=== PATIENT | female | born 1950 | race Caucasian/White ===

== ENCOUNTER 2022-11-19 08:20 | Day surgery (SDC) | payer MEDICARE, SELFPAY ==
[2022-11-13 09:42] VITALS: BMI 30.2
[2022-11-19 10:26] VITALS: BP 152/74; PULSE 59; RESP 18; TEMP 36.1; O2SAT 98
[2022-11-19 10:42] LABS: POC Glucose,Bedside 119 (70-110)
[2022-11-19 11:53] VITALS: BP 144/66; PULSE 64; RESP 16; O2SAT 98
[2022-11-19 11:58] VITALS: BP 133/61; PULSE 57; RESP 16; O2SAT 100
[2022-11-19 12:03] VITALS: BP 132/63; PULSE 57; RESP 16; O2SAT 100
[2022-11-19 12:07] VITALS: BP 144/72; PULSE 59; RESP 16; TEMP 36.1; O2SAT 98
[2022-11-19 12:17] VITALS: BP 144/72; PULSE 59; RESP 16; TEMP 36.1; O2SAT 98
== END 2022-11-19 12:17 | disposition home or self-care (01) ==
PROVIDERS: PCP Family Medicine; Visit Provider Ophthalmology
DX: E11.36 Type 2 diabetes mellitus with diabetic cataract (principal); H25.9 Unspecified age-related cataract
CPT/HCPCS: 66984; 82962; V2632

== ENCOUNTER 2022-12-10 08:46 | Day surgery (SDC) | payer MEDICARE, SELFPAY ==
[2022-12-09 11:14] VITALS: BMI 29.8
[2022-12-10] VITALS (8 sets, daily range): BP systolic 121–160; BP diastolic 60–99; PULSE 59–66; RESP 16–19; TEMP 36.1–36.9; O2SAT 98–100
[2022-12-10 10:44] LABS: POC Glucose,Bedside 140 (70-110)
== END 2022-12-10 12:30 | disposition home or self-care (01) ==
PROVIDERS: PCP Family Medicine; Visit Provider Ophthalmology
DX: E11.36 Type 2 diabetes mellitus with diabetic cataract (principal); H25.9 Unspecified age-related cataract
CPT/HCPCS: 66984; 82962; V2632

== ENCOUNTER 2024-04-20 15:35 | Outpatient (CLI) | payer MEDICARE, SELFPAY ==
[2024-04-20 17:25] LABS: Basophils % 0.5 % (0.1-2.0); Eosinophils # 0.2 K/mm3 (0.0-0.4); Eosinophils % 1.8 % (0.1-12.0); Hematocrit 41.4 % (37.0-47.0); Lymphocytes # 2.5 K/mm3 (0.7-4.5); Lymphocytes % 28.4 % (10-50); Mean Corpuscular HGB Conc 31.4 g/dL (31.8-35.4); Mean Corpuscular Volume 85.9 fl (81-99); Mean Platelet Volume 10.1 fl (7.4-10.4); Monocytes # 0.7 K/mm3 (0.1-1.0); Monocytes % 8.1 % (1.7-9.3); Neutrophils # 5.3 K/mm3 (1.8-7.8); Neutrophils % 60.9 % (37.0-80.0); Platelet Count 390 K/mm3 (142-424); Red Blood Count 4.82 M/mm3 (4.20-5.40); White Blood Count 8.7 K/mm3 (4.8-10.8)
[2024-04-20 17:44] LABS: Alanine Aminotransferase 23 U/L (12-78); Albumin Level 4.6 g/dl (3.5-5.0); Albumin/Globulin Ratio 1.8 (1.1-1.8); Alkaline Phosphatase 110 U/L (38-126); Anion Gap 16.2 mEq/L (5-15); Aspartate Amino Transferase 35 U/L (14-36); Bilirubin,Total 0.8 mg/dl (0.2-1.3); Blood Urea Nitrogen 22 mg/dl (7-17); Calcium 10.5 mg/dl (8.4-10.2); Carbon Dioxide 27 mmol/L (22.0-30.0); Chloride 100 mmol/L (98-107); Cholesterol 182 mg/dl (140-200); Estimated Glomerular Filt Rate 70 ml/min (>60); GFR (African American) 85 ML/MIN (>60); Globulin 2.6 g/dL (1.3-3.2); Glucose 96 mg/dl (74-100); Magnesium 1.3 mg/dl (1.6-2.3); Potassium 5.2 mmoL/L (3.5-5.1); Sodium 138 mmol/L (136-145); Total Protein,Serum 7.2 g/dl (6.3-8.2); Triglycerides 66 mg/dl (30-150); VLDL Cholesterol 13 mg/dL (0-40)
[2024-04-20 17:51] LABS: Chol/HDL Ratio 1.8 (1-3.5); HDL Cholesterol 101 mg/dl (40-60)
[2024-04-20 17:55] LABS: Direct LDL Cholesterol 57.78 mg/dL (100-129)
[2024-04-20 18:15] LABS: Thyroid Stimulating Hormone 1.83 uIU/mL (0.465-4.68)
[2024-04-20 18:19] LABS: Ferritin 24.9 ng/ml (11.1-264)
[2024-04-20 18:31] LABS: Hemoglobin A1C 6.5 % (4.0-6.0)
[2024-04-20 18:39] LABS: Vitamin B12 > 1000 pg/mL (239-931)
== END 2024-04-20 23:59 | disposition home or self-care (01) ==
LOC: LAB.DROPOF 04-21 12:01
PROVIDERS: PCP Nurse Practitioner Family; Visit Provider Nurse Practitioner Family
DX: E53.8 Deficiency of other specified B group vitamins (principal); I10 Essential (primary) hypertension; E78.5 Hyperlipidemia, unspecified; E11.9 Type 2 diabetes mellitus without complications
CPT/HCPCS: 80053; 80061; 82043; 82607; 82728; 83036; 83735; 84443; 85025

== ENCOUNTER 2024-05-03 14:07 | Outpatient (CLI) | payer MEDICARE, SELFPAY ==
[2024-05-03 13:10] LABS: Erythrocyte Sedimentation Rate 25 mm/hr (0-30)
[2024-05-03 13:22] LABS: Magnesium 1.4 mg/dl (1.6-2.3); Uric Acid 4.4 mg/dl (2.5-6.2)
[2024-05-04 12:35] LABS: RA Latex Turbid. 10.1 IU/mL (<14.0)
[2024-05-05 10:10] LABS: Antinuclear Antibodies, IFA Negative (.)
== END 2024-05-03 23:59 | disposition home or self-care (01) ==
LOC: LAB.DROPOF 14:08
PROVIDERS: PCP Nurse Practitioner Family; Visit Provider Nurse Practitioner Family
DX: M25.50 Pain in unspecified joint (principal); E83.42 Hypomagnesemia; E11.9 Type 2 diabetes mellitus without complications
CPT/HCPCS: 83735; 84550; 85651; 86038; 86431

== ENCOUNTER 2024-05-13 15:14 | Outpatient (CLI) | payer MEDICARE, SELFPAY ==
--- NOTE | 2024-05-13 15:15 | MM_ITS ---
PROCEDURE INFORMATION: Exam: MG Bilateral Screening 3D Mammography Exam date and time: 05/13/2024 3:24 PM Age: 73 years old Clinical indication: Screening examination TECHNIQUE: Imaging protocol: Bilateral Screening tomosynthesis and 2D mammography including computer-aided detection (CAD) when performed. COMPARISON: 1. MG SCREEN MAMMO W CAD BILAT 01/25/2022 8:01 AM 2. MG Screening-Bilateral Mammography 11/21/2020 12:18 PM FINDINGS: MAMMOGRAPHY: Breast composition: There are scattered areas of fibroglandular density. Mass: None. Architectural distortion: None. Calcifications: No suspicious calcifications. Asymmetric density: None. Skin thickening: None. Axillary adenopathy: None. IMPRESSION: No mammographic evidence of malignancy. Annual screening is recommended unless otherwise clinically indicated. ASSESSMENT: BI-RADS Category 1: Negative.
== END 2024-05-13 23:59 | disposition home or self-care (01) ==
LOC: RAD 15:15
PROVIDERS: PCP Nurse Practitioner Family; Visit Provider Nurse Practitioner Family
DX: Z12.31 Encounter for screening mammogram for malignant neoplasm of breast (principal)
CPT/HCPCS: 77063; 77067

== ENCOUNTER 2024-05-28 09:13 | Outpatient (CLI) | payer MEDICARE, SELFPAY ==
--- NOTE | 2024-05-28 09:15 | XR_ITS ---
FINAL REPORT TECHNIQUE: Bone densitometry calculations of the lumbar spine and left hip were obtained. CLINICAL HISTORY: screening for osteoporosis FINDINGS: Using L1-4, the bone mineral density of the spine is 1.006 g/cm2, corresponding to T-score of -0.4. Using the left hip, the bone mineral density of the femoral neck is 0.613 g/cm2, corresponding to a T-score of -2.1. Using the right hip, the bone mineral density of the femoral neck is 0.568 g/cm?, which corresponds to a T-score of -2.5. NOTE: T-score: Standard deviation compared with peak bone mass of young adult mean. *Following the recommendations of the International Society of Bone Densitometry, classification of hip BMD is based on the lower of two T-scores; total hip or femoral neck. IMPRESSION: Osteoporosis: Lowest T-score is at or below -2.5. This patient's T-score meets the World Health Organization criteria for osteoporosis. Reviewed, Interpreted and Dictated by Franco Raygoza MD Transcribed by Brea Means Authenticated and [facility]
== END 2024-05-28 23:59 | disposition home or self-care (01) ==
LOC: RAD 09:15
PROVIDERS: PCP Nurse Practitioner Family; Visit Provider Internal Medicine
DX: M81.0 Age-related osteoporosis without current pathological fracture (principal)
CPT/HCPCS: 77080

== ENCOUNTER 2024-06-11 11:51 | Outpatient (CLI) | payer MEDICARE, SELFPAY ==
--- NOTE | 2024-06-11 11:54 | XR_ITS ---
FINAL REPORT CLINICAL HISTORY: Bilateral knee pain, swelling FINDINGS: RIGHT KNEE Three views were obtained. There is no fracture or dislocation. There is moderate narrowing of the medial compartment joint space. There are osteophytes along the medial joint margin. No soft tissue abnormality is identified. IMPRESSION: Degenerative changes as above. Reviewed, Interpreted and Dictated by Gokul Arriaga MD Transcribed by Charlotte Lilly Authenticated and [facility]
--- NOTE | 2024-06-11 11:54 | XR_ITS ---
FINAL REPORT CLINICAL HISTORY: left knee pain and swelling FINDINGS: LEFT KNEE Three views were obtained. There is no fracture or dislocation. There is mild narrowing of the medial compartment joint space with small osteophytes along the undersurface of the patella. No soft tissue abnormality is identified. IMPRESSION: Degenerative changes as above. Reviewed, Interpreted and Dictated by Gokul Arriaga MD Transcribed by Charlotte Lilly Authenticated and [facility]
[2024-06-11 13:32] LABS: 25-OH Vitamin D, Total 58.7 ng/mL (30-100)
== END 2024-06-11 23:59 | disposition home or self-care (01) ==
LOC: RAD 11:52
PROVIDERS: PCP Nurse Practitioner Family; Visit Provider Nurse Practitioner Family
DX: M25.561 Pain in right knee (principal); M25.562 Pain in left knee; M81.0 Age-related osteoporosis without current pathological fracture
CPT/HCPCS: 73562; 82306

== ENCOUNTER 2024-09-22 14:37 | Outpatient (CLI) | payer MEDICARE, SELFPAY ==
--- NOTE | 2024-09-22 14:40 | XR_ITS ---
FINAL REPORT CLINICAL HISTORY: left knee pain and swelling FINDINGS: LEFT KNEE 3 views of the left knee were obtained. There is no acute fracture or dislocation. There is mild medial compartment joint space narrowing. A small joint effusion is seen. Bones are osteopenic. Visualized joint spaces are normally aligned. Soft tissues are unremarkable. IMPRESSION: Mild degenerative changes of the medial compartment without acute bony abnormality. Reviewed, Interpreted and Dictated by Franco Raygoza MD Transcribed by Shonda Gallegos Authenticated and [facility]
--- OUTSIDE RECORDS SUMMARY | 2024-09-22 14:44 | XMS_ITS | Data Portability ---
Author Organization [place] - [facility] [employer] [facility] Address [address] [place] [address] Care Team Providers Care Inspector Fabric Name Role Phone AMADA OCONNOR Primary Care Provider Assessment No assessment recorded. Plan of Treatment Reminders Order Date Submit Date Provider Last Modified By Organization Details Last Modified Time Details Appointments None record ed. Lab None record ed. Referral None record ed. Procedures None record ed. Surgeries None record ed. Imaging None record ed. Medication Orders None record ed. Patient Targets Encounter Date Encounter Id Patient Goals Patient Target Last Modified By Organization Details Last Modified Time 09/20/2024 [id number] ad terminal makeup operator goal of Blood Pressure 130/80 Not available Not available Not available ad terminal makeup operator goal of Hemoglobin A1C < 7% Not available Not available Not available Glucose, Fasting < 130 Not available Not available Not available Glucose, 2 Hour Postprandial < 180 Not available Not available Not available [facility] goal of Cholesterol, LDL < 70 mg/dL Not available Not available Not available 09/20/2024 [id number] Avoidance of hypoglycemia (any glucose <70)Glucose Test Frequency: once daily Blood Pressure Test Frequency: once daily [email or web address] Not available 09/20/2024 10:20:53 Patient Instructions Encounter Date Encounter Id Patient Instructions Last Modified By Organization Details Last Modified Time 08/16/2024 [id number] The member is melani rrently located in [place]. Pre-CallReview Readings Pre-call review started at 2024-08-16 17:25 EDT Glucometer Readings: Glucose 7-day fasting average: undefined, non-fasting average: 118 Glucose 30-day fasting average: undefined, non-fasting average: 112 BP Cuff Readings: Blood Pressure 7-day average: 131 / 71 Blood Pressure 30-day average: 137 / 73 Review Notes Most recent nurse notes were reviewed. Most recent provider notes were reviewed. Clinical TopicsCall InitiationConnection Connected: The member answered our calls Recording Call The member was notified and acknowledged that the call is being recorded for quality and training purposes. Identity Confirmation The member s identity was confirmed using name and date of . Location Confirmation The member is currently located in [place]. The member is willing and able to complete the call. Clinical ReviewMember Readings Members readings were reviewed with the member Member Health Updates Member reported no allergy and/or medication changes Clinical Goals Goal: fasting glucose less than 150 mg/DL Status: Not Started Current Value: Goal: Blood pressure less than 140/90 mmHg Status: On Track Current Value: 137/73 Goal: Non-fasting glucose less than 180 mg/DL Status: On Track Current Value: 112 Member Goals Goal: Member walks 2x this week for 30 mins Status: On Track Current Value: Goal: Member want to lose 30lbs 4 months Status: Off Track Current Value: Clinical Coaching The member was coached on the following topics: Diet Continue to work on increasing water intake. Monitor carbs & sodium Exercise Continue to be active. 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 Post-Call DocumentationPerformed By Karina Justice Time spent 10 minutes. [email or web address] Not available 08/16/2024 17:34:50 08/30/2024 [id number] The member is cu rrently located in [place]. Pre-CallReview Readings Pre-call review started at 2024-08-30 16:42 EDT Glucometer Readings: Glucose 7-day fasting average: undefined, non-fasting average: 115 Glucose 30-day fasting average: undefined, non-fasting average: 115 BP Cuff Readings: Blood Pressure 7-day average: 132 / 70 Blood Pressure 30-day average: 132 / 71 Review Notes Most recent nurse notes were reviewed. Most recent provider notes were reviewed. Clinical Topics Based on the assessment of the member's readings, the member's care plan was updated. Notes: Member BS avg is on track this week. Member BP avg is on track this week. Call InitiationConnection Connected: The member answered our calls Recording Call The member was notified and acknowledged that the call is being recorded for quality and training purposes. Identity Confirmation The member s identity was confirmed using name and date of . Location Confirmation The member is currently located in [place]. The member is willing and able to complete the call. Clinical ReviewMember Readings Members readings were reviewed with the member Member Health Updates Member reported no allergy and/or medication changes Clinical Goals Goal: fasting glucose less than 150 mg/DL Status: Not Started Current Value: Goal: Non-fasting glucose less than 180 mg/DL Status: On Track Current Value: 115 Goal: Blood pressure less than 140/90 mmHg Status: On Track Current Value: 132/71 Member Goals Goal: Member walks 2x this week for 30 mins Status: On Track Current Value: Clinical Coaching The member was coached on the following topics: Diet Encourage member to cutting back come more on her salt intake due to some welling in her feet. Member agreed. Continue to choosing healthier meals to help lower BP and BS readings. Exercise Encourage member to work on increasing her exercising daily to help with weight loss. Member agreed General Education Encourage member to check her BS after dinner to see what she eats effects her readings. Member agreed to try. Next StepsConfirm Next Appointments Confirmed the next [place] appointment with the member on 2024-09-06 16:00 EDT. Post-Call DocumentationPerformed By Paul Ortez Time spent 14 minutes. [email or web address] Not available 08/30/2024 16:56:42 09/06/2024 [id number] The member is cu rrently located in [place]. Pre-CallReview Readings Pre-call review started at 2024-09-06 16:02 EDT Glucometer Readings: Glucose 7-day fasting average: 115, non-fasting average: 121 Glucose 30-day fasting average: 115, non-fasting average: 119 BP Cuff Readings: Blood Pressure 7-day average: 136 / 73 Blood Pressure 30-day average: 133 / 72 Review Notes Most recent nurse notes were reviewed. Most recent provider notes were reviewed. Clinical TopicsCall InitiationConnection Connected: The member answered our calls Recording Call The member was notified and acknowledged that the call is being recorded for quality and training purposes. Identity Confirmation The member s identity was confirmed using name and date of . Location Confirmation The member is currently located in [place]. The member is willing and able to complete the call. Clinical ReviewMember Readings Members readings were reviewed with the member Member Health Updates Member reported no allergy and/or medication changes Clinical Goals Goal: fasting glucose less than 150 mg/DL Status: On Track Current Value: 115 Goal: Non-fasting glucose less than 180 mg/DL Status: On Track Current Value: 119 Goal: Blood pressure less than 140/90 mmHg Status: On Track Current Value: 133/72 Member Goals Goal: Member walks 2x this week for 30 mins Status: On Track Current Value: Goal: Member want to lose 30lbs 4 months Status: Off Track Current Value: Clinical Coaching The member was coached on the following topics: Diet Exercise Encourage member to exercise and move to increase her heart rate to help burn calories. Member agreed. General Education Encourage member to keep up the good work with her BP and BS readings they are improving. Advised member to rest 5-10 mins before taking readings. Next StepsConfirm Next Appointments Confirmed the next [place] appointment with the member on 2024-09-13 16:00 EDT. Post-Call DocumentationPerformed By Paul Ortez Time spent 13 minutes. [email or web address] Not available 09/06/2024 16:15:33 09/20/2024 [id number] Does member have the [facility] downloaded? YES Next [place] appointment is confirmed on 09/27/2024. Was there a need during this visit to complete a Member Service Request? No. If yes, provide a summary of the request. The total amount of time spent in care of this patient was 10 minutes. [email or web address] Not available 09/20/2024 10:23:38 Reason for Referral None Reported. Problems Name Problem SNOMED Code Status Onset Date Resolution Date Notes Provider Name and Address Organization Details Recorded Time Essential hypertension 13702924 Active 2023 CHINMAY KELLEY NP [address] , [place], [address], [facility] 15:00:56 Type 2 diabetes mellitus 90164895 Active 2023 CHINMAY KELLEY NP [address] , [place], [address], [email or web address] 15:00:57 Problem Notes None recorded. Procedures Surgical History Date Name Laterality Status Provider Name and Address Organization Details Recorded Time Cataract Surgery completed CHINMAY KELLEY NP [address], [place], [address], [facility] 12/05/2023 14:59:51 cholecystectomy completed CHINMAY KELLEY NP [address], [place], [address], [facility] 12/05/2023 14:59:55 Imaging Results None recorded. Procedure Notes None recorded. Medical Equipment None Reported. Allergies No known drug allergies Medications Name Sig Start Date Stop Date Status Note LastModified by Organization Details LastModified Time losartan 50 mg tablet 1 TAB PO QD active Not Available Not Available No t Available amoxicillin 500 mg capsule 12/04 completed Not Available Not Available Not Available carvedilol 25 mg tablet Take 1 tablet twice a day by oral route. active Not Available Not Available No t Available atorvastati n 20 mg tablet 1 TAB PO QD active Not Available Not Available No t Available clindamycin HCl 300 mg capsule 12/04 completed Not Available Not Available Not Available nitroglycer in 0.[address] 1 tablet as needed by sublingua l route as directed. active Not Available Not Available No t Available ondansetron HCl 4 mg tablet 12/04 completed Not Available Not Available Not Available tramadol 50 mg tablet 12/04 completed Not Available Not Available Not Available metformin 1,000 mg tablet Take 1 tablet twice a day by oral route. active Not Available Not Available No t Available omeprazole 20 mg capsule,del ayed release Take 1 capsule every day by oral route. active Not Available Not Available No t Available pioglitazon e 30 mg tablet Take 1 tablet every day by oral route. active Not Available Not Available No t Available Lotemax SM 0.38 % eye gel drops 1 GTT EACH EYE QD PRN 12/04 completed Not Available Not Available Not Available Vitals Date Recorded Body height Provider Name an d Address Organization Details Last Updated DateTime 09/20/2024 165.1 cm JOHN MITZI, DO [address], [place], [address], [facility] 09/20/2024 10:13:54 Social History None recorded. Functional Status Question Answer Note LastModified by Organizat ion Details LastModified Time Do you use any illicit or recreational drugs? No Information not available 12/05/2023 Do you or have you ever used any other forms of tobacco or nicotine? No Information not available 12/05/2023 What is your level of alcohol consumption? None Information not available 12/05/2023 Mental Status None recorded. Family History Nothing Reported. Medical History Condition Response Diabetes Y Coronary Artery Disease N Obesity Y Hyperthyroidism N Congestive Heart Failure (CHF) N Cancer N Stroke N COPD N Asthma N Hypothyroidism N Sleep Apnea N High Cholesterol Y Hypertension Y Kidney Disease N Gynecological HistoryNo gynecological history recorded. Obstetrics History GPAL:G 0 P 0 0 0 0 Past Encounters Encounter ID Performer Location Encounter Start Date Encounter Closed Date Diagnosis/Indication Diagnosis SNOMED-CT Code Diagnosis ICD10 Code Diagnosis Note [id number] CHINMAY KELLEY NP [facility] Schedule [address] [place] [address] 12/05/2023 14:24:41 12/05/2023 15:09:52 Type 2 diabetes mellitus 12024128 E11.65 -Start Remote Patient Monitoring -Continue all current medication s. -Incorpora te diet and exercise into daily routine. -Start checking your blood sugar 1 times daily before breakfast. -Highlight ed importance of glucose reading technique. -Follow-up with nurse for RPM visits. Essential hypertension 78835755 I10 -Start Remote Patient Monitoring -Continue all current medication s. -Incorpora te diet, exercise, and stress management into daily routine. -Start to check BP 1 times daily before meds. -Highlight ed importance of BP reading technique. -Follow-up with nurse for RPM visits. [id number] [facility] [place] Schedule [address] [place] [address] 12/22/2023 16:28:45 12/22/2023 16:50:28 Type 2 diabetes mellitus 29627687 E11.65 Essential hypertension 18689896 I10 [id number] [facility] [address] [place] [address] 01/05/2024 16:27:46 01/06/2024 08:29:56 Type 2 diabetes mellitus 66701558 E11.65 Essential hypertension 20369010 I10 [id number] [facility] [place] Schedule [address] [place] [address] 01/19/2024 16:00:33 01/20/2024 08:31:30 Type 2 diabetes mellitus 67673771 E11.65 Essential hypertension 58492622 I10 [id number] CHINMAY KELLEY NP [facility]urs[facility] Schedule [address] [place] [address] 02/05/2024 14:34:33 02/06/2024 12:38:11 Type 2 diabetes mellitus 76603536 E11.65 Essential hypertension 72461459 I10 [id number] CHINMAY KELLEY NP [facility]urs[facility] Schedule [address] [place] [address] 02/16/2024 16:24:57 02/17/2024 12:01:18 Essential hypertension 21828956 I10 Type 2 fabian betes mellitus 67435397 E11.65 [id number] JOHN MITZI, DO [facility] Schedule [address] [place] [address] 02/23/2024 16:21:03 02/23/2024 16:36:02 Type 2 diabetes mellitus 61698630 E11.65 Type 2 diabetes mellitus Essential hypertension 69795155 I10 Essential hypertensi on 732953 JOHN CARTAGENA, DO [facility] Schedule [address] [place] [address] 03/01/2024 15:59:22 03/01/2024 16:05:33 Type 2 diabetes mellitus 66044098 E11.65 Type 2 diabetes mellitus Essential hypertension 53215494 I10 Essential hypertensi on 368217 JOHN MITZI, DO [facility] Schedule [address] [place] [address] 03/08/2024 16:27:47 03/08/2024 16:31:38 Type 2 diabetes mellitus 12314135 E11.65 Type 2 diabetes mellitus Essential hypertension 94791607 I10 Essential hypertensi on [id number] JOHN MOELLERSER, DO [facility] Schedule [address] [place] [address] 03/15/2024 16:01:05 03/15/2024 16:13:43 Type 2 diabetes mellitus 73343611 E11.65 Type 2 diabetes mellitus Essential hypertension 20197744 I10 Essential hypertensi on 036676 JOHN CARTAGENA, DO [facility] Schedule [address] [place] [address] 03/22/2024 16:16:32 03/22/2024 16:21:28 Type 2 diabetes mellitus 44172026 E11.65 Type 2 diabetes mellitus Essential hypertension 86823487 I10 Essential hypertensi on 448449 JOHN CARTAGENA, DO [facility] Schedule [address] [place] [address] 03/29/2024 16:02:31 03/29/2024 16:15:06 Type 2 diabetes mellitus 56552930 E11.65 Type 2 diabetes mellitus Essential hypertension 92125019 I10 Essential hypertensi on 933896 JOHN CARTAGENA, DO [facility] Schedule [address] [place] [address] 04/05/2024 16:16:26 04/05/2024 16:31:15 Type 2 diabetes mellitus 15466331 E11.65 Type 2 diabetes mellitus Essential hypertension 18840378 I10 Essential hypertensi on 173140 JOHN CARTAGENA, DO [facility] Schedule [address] [place] [address] 04/12/2024 16:07:57 04/12/2024 16:32:42 Type 2 diabetes mellitus 43214422 E11.65 Type 2 diabetes mellitus Essential hypertension 61374925 I10 Essential hypertensi on 307373 JOHN CARTAGENA, DO [facility] Schedule [address] [place] [address] 04/26/2024 16:01:12 04/26/2024 16:14:10 Type 2 diabetes mellitus 05036848 E11.65 Type 2 diabetes mellitus Essential hypertension 13943304 I10 Essential hypertensi on 385881 JOHN CARTAGENA, DO [facility]urs[facility] Schedule [address] [place] [address] 05/03/2024 16:18:19 05/03/2024 16:33:53 Type 2 diabetes mellitus 66015707 E11.65 Type 2 diabetes mellitus Essential hypertension 54334790 I10 Essential hypertensi on 584997 JOHN CARTAGENA, DO [facility]urs[facility] Schedule [address] [place] [address] 05/10/2024 16:21:27 05/10/2024 16:38:30 Type 2 diabetes mellitus 51350613 E11.65 Type 2 diabetes mellitus Essential hypertension 17943441 I10 Essential hypertensi on [id number] JOHN CARTAGENA, DO [facility]Nursin g Schedule [address] [place] [address] 05/17/2024 16:42:17 05/17/2024 16:56:52 Type 2 diabetes mellitus 32904217 E11.65 Type 2 diabetes mellitus Essential hypertension 31842182 I10 Essential hypertensi on 248448 JOHN CARTAGENA, DO [facility]urs[facility] Schedule [address] [place] [address] 05/24/2024 16:01:02 05/24/2024 16:17:46 Type 2 diabetes mellitus 83093411 E11.65 Type 2 diabetes mellitus Essential hypertension 08295583 I10 Essential hypertensi on 859557 JOHN CARTAGENA, DO [facility]Nursin g Schedule [address] [place] [address] 05/31/2024 16:15:13 05/31/2024 16:30:41 Type 2 diabetes mellitus 97427523 E11.65 Type 2 diabetes mellitus Essential hypertension 17236837 I10 Essential hypertensi on 868378 JOHN CARTAGENA, DO [facility]Nurs[facility] Schedule [address] [place] [address] 06/14/2024 16:13:29 06/14/2024 16:24:27 Type 2 diabetes mellitus 87380022 E11.65 Type 2 diabetes mellitus Essential hypertension 31391727 I10 Essential hypertensi on 842731 JOHN CARTAGENA, DO [facility]Nursin g Schedule [address] [place] [address] 06/15/2024 11:22:14 06/15/2024 11:34:25 Type 2 diabetes mellitus 11199095 E11.65 Type 2 diabetes mellitus Essential hypertension 09310138 I10 Essential hypertensi on 419249 JOHN MOELLERSER, DO [facility]Nursin g Schedule [address] [place] [address] 06/21/2024 16:41:09 06/21/2024 16:45:22 Type 2 diabetes mellitus 02997453 E11.65 Type 2 diabetes mellitus Essential hypertension 20288199 I10 Essential hypertensi on 449928 JOHN CARTAGENA, DO [facility]Nurs[facility] Schedule [address] [place] [address] 06/28/2024 16:52:37 06/28/2024 17:03:34 Type 2 diabetes mellitus 92659899 E11.65 Type 2 diabetes mellitus Essential hypertension 38847923 I10 Essential hypertensi on 627773 JOHN CARTAGENA, DO [facility]Nursin [facility] Schedule [address] [place] [address] 07/05/2024 16:51:10 07/05/2024 17:08:23 Type 2 diabetes mellitus 23233729 E11.65 Type 2 diabetes mellitus Essential hypertension 61270136 I10 Essential hypertensi on 432905 JOHN CARTAGENA, DO [facility]Nursin g Schedule [address] [place] [address] 07/19/2024 17:23:09 07/19/2024 17:34:08 Type 2 diabetes mellitus 05389273 E11.65 Type 2 diabetes mellitus Essential hypertension 39795611 I10 Essential hypertensi on 213262 JOHN CARTAGENA, DO [facility] Schedule [address] [place] [address] 07/26/2024 16:27:51 07/26/2024 16:33:02 Type 2 diabetes mellitus 26040031 E11.65 Type 2 diabetes mellitus Essential hypertension 92130440 I10 Essential hypertensi on 497625 JOHN CARTAGENA, DO [facility]Nursin g Schedule [address] [place] [address] 07/27/2024 15:13:36 07/27/2024 15:34:32 Type 2 diabetes mellitus 49747356 E11.65 Type 2 diabetes mellitus Essential hypertension 16887428 I10 Essential hypertensi on 500045 JOHN CARTAGENA, DO [facility]Nursin g Schedule [address] [place] [address] 08/02/2024 16:37:44 08/02/2024 16:41:50 Type 2 diabetes mellitus 93602541 E11.65 Type 2 diabetes mellitus Essential hypertension 25808647 I10 Essential hypertensi on 739994 JOHN MITZI, DO [facility]Nursin g Schedule [address] [place] [address] 08/03/2024 16:39:14 08/03/2024 16:52:44 Type 2 diabetes mellitus 34299109 E11.65 Type 2 diabetes mellitus Essential hypertension 49818260 I10 Essential hypertensi on 547258 JOHN MITZI, DO [facility]Nursin [facility] Schedule [address] [place] [address] 08/09/2024 16:43:04 08/09/2024 16:58:01 Type 2 diabetes mellitus 46091213 E11.65 Type 2 diabetes mellitus Essential hypertension 29736027 I10 Essential hypertensi on 217837 JOHN MITZI, DO [facility]Nursin g Schedule [address] [place] [address] 08/16/2024 17:25:15 08/16/2024 17:34:50 Type 2 diabetes mellitus 96018873 E11.65 Type 2 diabetes mellitus Essential hypertension 26448942 I10 Essential hypertensi on 265171 JOHN MOELLERSER, DO [facility]Nurs[facility] Schedule [address] [place] [address] 08/30/2024 16:42:24 08/30/2024 16:56:42 Type 2 diabetes mellitus 50168576 E11.65 Type 2 diabetes mellitus Essential hypertension 82110430 I10 Essential hypertensi on 235498 JOHN MOELLERSER, DO [facility]Nurs[facility] Schedule [address] [place] [address] 09/06/2024 16:02:53 09/06/2024 16:15:34 Type 2 diabetes mellitus 61843834 E11.65 Type 2 diabetes mellitus Essential hypertension 01907926 I10 Essential hypertensi on 304519 JOHN MOELLERSER, DO [facility]Nursin g Schedule [address] [place] [address] 09/13/2024 16:32:17 09/13/2024 16:43:49 Type 2 diabetes mellitus 88836597 E11.65 Type 2 diabetes mellitus Essential hypertension 05547608 I10 Essential hypertensi on 147083 JOHN MITZI, DO [facility]Provid er Schedule [address] [place] [address] 09/20/2024 10:12:40 09/21/2024 07:31:39 Type 2 diabetes mellitus 60760638 E11.65 Essential hypertension 31286957 I10 Diabetes Ongoing Care Plan -Continue RPM to ensure proper glucose control, gain insight into how diet affects glucose readings, and to avoid long-term adverse effects of uncontroll ed diabetes. - Frequency of Biomarker Readings: Once daily: fasting before meds/break fastIf other, list instructio ns here: - Medication recommenda tions:X continue current regimen__ make these medication changes: - Statin Therapy: Patient currently on optimal statin therapy based on ASCVD risk. Additional support:Is member tagging readings? YES.Is member familiar with plate method? YES.Drinki ng at least 48-64 oz of water per day, if no fluid restrictio n? YES. Hypertensi on Ongoing Care Plan: -Continue RPM to ensure proper BP control and to avoid long-term consequenc es of uncontroll ed high blood pressure. - Frequency of biomarker readings: Once daily before meds - Medication recommenda tions:X continue current regimen__ make these medication changes: Additional support:Is positionin g of device correct? YES.Drinki ng at least 48-64 oz of water per day, if no fluid restrictio n? YES.Watchi ng salt intake? YES. General:Nu rse visit frequency- Every 2 weeks while enrolled- Provider recommende d Care Plan Goals{docu mented in Patient Goals section- specific to member}- Telehealth Nurse to continue to monitor and adjust personaliz ed SMART goals and update goal statuses as appropriat e. Provider visit frequency- Every 6 months while enrolled- As needed as concerns arise - PCP/Specia list communicat ion plan: Nurses to fax readings: monthly to: X PCP; __ cardiologi st; __ endocrinol ogist, __ other: - Additional testing and laboratory guidance: per PCP Goals Section Goal Description Progress Status Start Date LastModified by Organization Details LastModified Time Increase water intake to 2 bottles until next appointmen t. None Recorded None active 024 Paul Ortez Information not available 02/16/2024 21:34:03 Health Concerns Section Related Observation LastModified by Organization Gary ls LastModified Time None Recorded Concern Status LastModified by Organization Details LastModified Time None Recorded Advance Directives Directive None Recorded Payers Insurance Date Sequence Insurance Name Policy Number Policy Henderson Covered Member ID Henderson Member ID Guarantor Name 08/30/2024 1 [place] Melissa Espinal [id number] Melissa Espinal 09/22/2024 2 [employer] (MEDICARE SUPPLEMENT) Melissa Espinal [id number] Melissa Espinal 08/30/2024 [place] Melissa Espinal [id number] Melissa Calvin Kylie 08/30/2024 [place] Melissa Espinal [id number] Melissa Espinal Notes Date Note Type Note Provider Name and Address Organization Details Recorded Time 09/20/2024 text/html General- Patient name and verified: Yes- Disclosed that the call is being recorded: Yes- This visit was conducted via audio-only- The provider was ready and able to provide a video visit on a HIPAA-compliant video platform and the patient declined, because they were unable to connect to video is driving at this time - Is an approved medical decision maker speaking on behalf of the patient? N/A: Pt makes own decisionsIf yes, name and relationship of medical decision maker:- State patient is located in at time of call: [place]- Patient Location at time of visit: Other than homeIf location today is outside the state in [place] home address, has patient moved?N/AIf patient has moved, was address updated in [facility]?N/A Recent illnesses or hospitalizations: none.Diet:ada cardiac.Patient is physically active.Has a PCP YesStatin therapy YesWeight changes: none. Chronic hypertension,contr olledstable.Highes t149/8306/ Imqesf984/6506/2024 Efoyzk550/7206/2024 Fhoautc398/72 Systolic Average: 135Diastolic Average: 72 Compliant with the current treatment plan. Treated with lifestyle and medication. Duration: HTN present for years. Response to current treatment regimen: good. Sodium intake: low. no symptoms: - headache, - change in vision, - weakness, - chest pain/angina, - change in urine output, - leg swelling, - nausea, - sweating, - palpitations, - symptoms for causes of secondary hypertension: additional complications: . Chronic diabetes,controlle dstable.Checking glucose 1 times daily.[id number] [id number] 5 Podzxf49008/23/202 5 Wzhypqq134 Fasting Average: 123Not Fasting Average: 126 Compliant with treatment plan. Treated with lifestyle and medication. Response to current treatment regimen: great.Eye doctor at least annually YesDiabetic foot exam annually Yes feet are doing well - no sores or wounds, no swelling. no symptoms: - weight gain, - weight loss, - fatigue, - blurry vision, - neuropathy, - polyphagia, - polyuria, - polydipsia, - nighttime sweats, - hypoglycemic episodes, - wounds or ulcers additional complications: . JOHN CARTAGENA, DO [address], [place], [address], [facility] 09/20/2024 10:31:18 OBGyn Episode No OBEpisode recorded.
--- OUTSIDE RECORDS SUMMARY | 2024-09-22 14:45 | XMS_ITS | Continuity of Care Document ---
Author Organization [place] - [facility], [facility] Address [address] [place] [address] Care Team Providers Care Supervisor Cutting Department Name Role Phone AMADA OCONNOR Primary Care Provider Assessment No assessment recorded. Plan of Treatment Reminders Order Date Submit Date Provider Last Modified By Organization Details Last Modified Time Details Appointments None record ed. Lab None record ed. Referral None record ed. Procedures None record ed. Surgeries None record ed. Imaging None record ed. Medication Orders None record ed. Patient TargetsNo targets recorded. Patient Instructions Encounter Date Encounter Id Patient Instructions Last Modified By Organization Details Last Modified Time 08/02/2024 [id number] Pre-CallReprabhjot mendiola Pre-call review started at 2024-08-02 16:37 EDT Glucometer Readings: Glucose 7-day fasting average: undefined, non-fasting average: 112 Glucose 30-day fasting average: 96, non-fasting average: 111 BP Cuff Readings: Blood Pressure 7-day average: 135 / 72 Blood Pressure 30-day average: 140 / 74 Review Notes Most recent nurse notes were reviewed. Most recent provider notes were reviewed. Clinical Topics Based on the assessment of the member's readings, the member's care plan was updated. Notes: Member BP avg is on track this week. Member BS avg is on track this week. Call InitiationConnection Not Connected: the member could not be reached for this visit. Care Message The member was sent the following care message via SMS after reviewing their chart: Manoj Torres, this is Nurse Paul with [facility]. I tried calling but we weren't able to connect. I've reviewed your chart. It's great to see your progress! Please continue your current plan. Let's discuss my review at your next scheduled appt on 08/09/2024 4:00-5:00 PM EDT. Post-Call DocumentationPerformed By Paul Ortez Time spent 4 minutes. Additional Details Called member 2x, lvm and sent sms for call back. [id number] Not available 08/02/2024 16:41:49 Reason for Referral None Reported. Problems Name Problem SNOMED Code Status Onset Date Resolution Date Notes Provider Name and Address Organization Details Recorded Time Essential hypertension 31381178 Active 2023 CHINMAY KELLEY NP [address] , [place], [address], [facility] [place] [facility] 15:00:56 Type 2 diabetes mellitus 50972388 Active 2023 CHINMAY KELLEY NP [address] , [place], [address], [facility] [place] [facility] [facility] 15:00:57 Problem Notes None recorded. Procedures Surgical History Date Name Laterality Status Provider Name and Address Organization Details Recorded Time Cataract Surgery completed CHINMAY KELLEY NP [address], [place], [address], [facility] [place] - [facility] 12/05/2023 14:59:51 cholecystectomy completed CHINMAY KELLEY NP [address], [place], [address], [facility] 12/05/2023 14:59:55 Imaging Results None recorded. Procedure [...] Not Available Not Available Not Available Vitals None Recorded Social History None recorded. Functional Status Question [...] History Nothing Reported. Medical History Condition Response Coronary Artery Disease N Hyperthyroidism N Hypothyroidism N COPD N Obesity Y Cancer N Stroke N High Cholesterol Y Kidney Disease N Diabetes Y Congestive Heart Failure (CHF) N Asthma N Sleep Apnea N Hypertension Y Gynecological HistoryNo gynecological history recorded. Obstetrics History GPAL:G 0 P 0 0 0 0 Past Encounters Encounter ID Performer Location Encounter Start Date Encounter Closed Date Diagnosis/Indication Diagnosis SNOMED-CT Code Diagnosis ICD10 Code Diagnosis Note [id number] JOHN CARTAGENA DO [facility] [address] [place] [address] 07/05/2024 16:51:10 07/05/2024 17:08:23 Type 2 diabetes mellitus 65059159 E11.65 Type 2 diabetes mellitus Essential hypertension 69889688 I10 Essential hypertensi on [id number] JOHN CARTAGENA DO [facility] [address] [place] [address] 07/19/2024 17:23:09 07/19/2024 17:34:08 Type 2 diabetes mellitus 30395238 E11.65 Type 2 diabetes mellitus Essential hypertension 94467853 I10 Essential hypertensi on [id number] JOHN CARTAGENA, DO [facility] [address] [place] [address] 07/26/2024 16:27:51 07/26/2024 16:33:02 Type 2 diabetes mellitus 45124486 E11.65 Type 2 diabetes mellitus Essential hypertension 29282667 I10 Essential hypertensi on [id number] JOHN OMELLERSER, DO [facility] [address] [place] [address] 07/27/2024 15:13:36 07/27/2024 15:34:32 Type 2 diabetes mellitus 85752790 E11.65 Type 2 diabetes mellitus Essential hypertension 85052327 I10 Essential hypertensi on [id number] JOHN CARTAGENA, DO [facility] [address] [place] [address] 08/02/2024 16:37:44 08/02/2024 16:41:50 Type 2 diabetes mellitus 85511426 E11.65 Type 2 diabetes mellitus Essential hypertension 46295930 I10 Essential hypertensi on Goals Section Goal Description Progress Status Start Date LastModified by Organization Details LastModified Time Increase water intake to 2 bottles until next appointmen t. None Recorded None active 024 Paul Ortez Information not available 02/16/2024 21:34:03 Health Concerns Section Related Observation LastModified by Organization Detai ls LastModified Time None Recorded Concern Status LastModified by Organization Details LastModified Time None Recorded Payers Encounter Date Sequence Insurance Name Policy Number Policy Henderson Covered Member ID Henderson Member ID Guarantor Name 08/02/2024 1 [place] Melissa Espinal [id number] Melissa Espinal OBGyn Episode No OBEpisode recorded.
== END 2024-09-22 23:59 | disposition home or self-care (01) ==
LOC: RAD 14:38
PROVIDERS: PCP Nurse Practitioner Family; Visit Provider Nurse Practitioner Family
DX: M17.12 Unilateral primary osteoarthritis, left knee (principal)
CPT/HCPCS: 73562